=== PATIENT | male | born 1975 | race Caucasian/White ===

== ENCOUNTER 2021-07-03 10:04 | Outpatient (CLI) | payer OTHER, SELFPAY ==
--- NOTE | 2021-07-03 | EST_ITS ---
Patient Info Name: Chet Valiente Age: 46 years : 1975 Gender: Male Ht: 70 in Wt: 215 lbs BSA: 2.22 m2 HR: 71 bpm BP: 123 / 80 mmHg Heart Rhythm: Sinus Rhythm Exam Date: 07/03/2021 11:50 AM Exam Location: [facility] Stress Patient Status: Outpatient Admit Date: 07/03/2021 Staff Ordering Physician: Zander, Isi MARADIAGA Attending Provider: Zander, Isi MARADIAGA Exercise Technologist: Carla Singletary CT Exercise Physician: Tc Banegas MD Exam Type: CA stress test treadmill Study Info Indications R07.9 - Chest pain, unspecified A treadmill exercise stress test was performed. Summary 1. Normal sinus rhythm - normal ECG. 2. No abnormal ST/T wave changes with exercise. 3. Clinically and electrocardiographically negative exercise stress test at 76% of age predicted maximum heart rate. 4. Patient had to stop exercise prior to achieving target heart rate because of ankle/foot pain. Protocol: [facility] Stress ECG Details Stage: REST Duration (min): 1 min : 22 sec Speed (mph): 0.0 Grade (%): 0 HR (bpm): 71 SBP (mmHg): 123 DBP (mmHg): 80 METS: --- Stage: REST Duration (min): 7 min : 55 sec Speed (mph): 0.0 Grade (%): 0 HR (bpm): 76 SBP (mmHg): 123 DBP (mmHg): 80 METS: --- Stage: STAGE 1 Duration (min): 1 min : 0 sec Speed (mph): 1.7 Grade (%): 10 HR (bpm): 94 SBP (mmHg): 123 DBP (mmHg): 80 METS: --- Stage: STAGE 1 Duration (min): 2 min : 0 sec Speed (mph): 1.7 Grade (%): 10 HR (bpm): 97 SBP (mmHg): 123 DBP (mmHg): 80 METS: --- Stage: STAGE 1 Duration (min): 3 min : 0 sec Speed (mph): 1.7 Grade (%): 10 HR (bpm): 97 SBP (mmHg): 158 DBP (mmHg): 82 METS: --- Stage: STAGE 2 Duration (min): 1 min : 0 sec Speed (mph): 2.5 Grade (%): 12 HR (bpm): 106 SBP (mmHg): 158 DBP (mmHg): 82 METS: --- Stage: STAGE 2 Duration (min): 2 min : 0 sec Speed (mph): 2.5 Grade (%): 12 HR (bpm): 107 SBP (mmHg): 188 DBP (mmHg): 77 METS: --- Stage: STAGE 2 Duration (min): 3 min : 0 sec Speed (mph): 2.5 Grade (%): 12 HR (bpm): 108 SBP (mmHg): 188 DBP (mmHg): 77 METS: --- Stage: STAGE 3 Duration (min): 1 min : 0 sec Speed (mph): 3.4 Grade (%): 14 HR (bpm): 119 SBP (mmHg): 173 DBP (mmHg): 75 METS: --- Stage: STAGE 3 Duration (min): 2 min : 0 sec Speed (mph): 3.4 Grade (%): 14 HR (bpm): 125 SBP (mmHg): 173 DBP (mmHg): 75 METS: --- Stage: STAGE 3 Duration (min): 3 min : 0 sec Speed (mph): 3.4 Grade (%): 14 HR (bpm): 128 SBP (mmHg): 198 DBP (mmHg): 75 METS: --- Stage: STAGE 4 Duration (min): 0 min : 11 sec Speed (mph): 4.2 Grade (%): 16 HR (bpm): 130 SBP (mmHg): 198 DBP (mmHg): 75 METS: --- Stage: R
== END 2021-07-03 10:05 | disposition home or self-care (01) ==
PROVIDERS: PCP Nurse Practitioner Adult Health; Visit Provider Nurse Practitioner Adult Health
DX: R07.9 Chest pain, unspecified (principal)
CPT/HCPCS: 93017